=== PATIENT | male | born 1970 | race Caucasian/White ===

== ENCOUNTER 2018-07-22 11:13 | Inpatient (IN) | payer SELFPAY ==
[~2018-07-22] VITALS: Ht 177.8 cm; Wt 72.7 kg
--- NOTE | ~2018-07-22 | MORECARE ---
CASE MANAGEMENT DISCHARGE SUMMARY PATIENT: DEDRICK DOMINGUEZ UNIT: [id number] ADM DATE: 07/22/18 AGE: 48 : [birth year] SEX: M ROOM/BED: D.2227 AUTHOR: DARIO,DOC PHYSICIAN: REFERRING PHYSICIAN: YAKELIN DONALD MD DATE OF SERVICE: 07/26/18 Discharge Plan Patient Name: DEDRICK DOMINGUEZ Facility: [facility]:[place] : 1970 Planned Disposition: Home Anticipated Discharge Date: Discharge Date: 07/24/2018 Expected LOS: 0 Initial Reviewer: [email or web address] Initial Review Date: 07/23/2018 Generated: 07/26/18 10:46 am Comments DCP- Discharge Planning Updated by [email or web address]: Makenna Salazar on 07/23/18 1:[address] Patient Name: DEDRICK DOMINGUEZ Admission Status: ER Accout number: [id number] Admission Date: 07-22-2018 : 1970 Admission Diagnosis: Attending: YAKELIN DONALD Current LOS: 1 Anticipated DC Date: Planned Disposition: Home Primary Insurance: UNINSURED DISCOUNT PLAN Discharge Planning Comments: CM met with patient to discuss discharge planning, he is alone in the room. States he lives with his 13 year old son. States his "sebastián" is watching him while he is here in the hospital. States he is independent with all ADL's and IADL's. States his friend, Eva, will take him home on discharge. Declines home health, states he does not have any discharge needs. No needs identified. CM will continue to follow and assist with discharge planning/needs. Respiratory Manager: Makenna Salazar DCPIA - Discharge Planning Initial Assessment Updated by [email or web address]: Makenna Salazar on 07/23/18 2:46 pm * Is the patient Alert and Oriented? Yes * How many steps to enter\\exit or inside your home? 0/0 * PCP None * Pharm[facility] [address] * Preadmission Environment Home with Family * ADLs Independent * Equipment None * List name and contact numbers for known caregivers / representatives who currently or will assist patient after discharge: Eva Harman - [place] - [phone] * Verbal permission to speak to the caregivers and representatives has been obtained from the patient. Yes * Community resources currently utilized None * Additional services required to return to the preadmission environment? No * Can the patient safely return to the preadmission environment? Yes * Has this patient been hospitalized within the prior 30 days at any hospital? No Last DP export: 07/23/18 2:00 Patient Name: DEDRICK DOMINGUEZ Page 17999 at 0947 All edits/amendments must be made on the electronic document DICTATION DATE: 07/26/18945 SHIPPING LEAD PERSON: JAMES 07/26/18945 RPT#: [id number] DC DATE:07/24/18 STATUS: DIS IN [facility] [address] [place] [address] END OF REPORT
--- NOTE | ~2018-07-22 | OP ---
PATIENT NAME: DEDRICK DOMINGUEZ MEDICAL RECORD: [id number] :[birth year] LOCATION:D.MS Sarah2227 ADMISSION DATE:07/22/18 SURGEON: SAMUEL DONALD MD DATE OF OPERATION: 07/23/2018 PREOPERATIVE DIAGNOSIS: Acute cholecystitis. POSTOPERATIVE DIAGNOSIS: Acute cholecystitis with hepatomegaly. PROCEDURES: 1. Laparoscopic cholecystectomy. 2. Intraoperative cholangiography without immediate surgeon interpretation. 3. A 14-gauge core needle liver biopsy. SURGEON: Samuel Donald MD HUSBANDRY TECHNICIAN: None. BLOOD LOSS: Minimal. ANESTHESIA: General. COMPLICATIONS: None. The risks, possible complications, and alternatives to the procedure were explained to the patient. He elects to proceed. The discussion specifically included, but was not limited to, bleeding requiring emergency reoperation, infection, great vessel injury, bile duct injury. The indication for the liver biopsy was hepatomegaly. OPERATIVE COURSE: The patient was conveyed to the operating room electively on 07/23/2018. General anesthesia was induced by the anesthesia staff. The abdomen was sterilely prepped and draped. Due to the size of the gallstone, it was going to be necessary to make a larger fascial incision in order to retrieve the gallstone. A transverse incision was accomplished above the umbilicus. Sharp dissection was carried down to the level of the anterior fascia. Stay sutures of #0 Vicryl were placed on either side of the anterior fascia. The fascia was incised in the midline and I entered the peritoneal cavity through the linea alba. A 12-mm trocar was placed. CO2 insufflation was begun. Once a sufficient pneumoperitoneum had been achieved, three 5-mm trocars were inserted. One was inserted in the left upper quadrant, one was inserted in the epigastrium, and one was inserted far laterally in the right upper quadrant. Under laparoscopic guidance, I percutaneously accessed the right upper quadrant utilizing a 14-gauge core needle liver biopsy device. Cores were obtained over the convexity of the liver. The biopsy sites were made hemostatic with electrocautery. I then advanced a cholangiogram trocar. I punctured the fundus of the gallbladder. I aspirated bile. I then injected dye. Real time cholangiographic images were obtained and these static images were sent to the radiologist for interpretation. OPERATIVE REPORT [id number] DEDRICK DOMINGUEZ I aspirated bile and withdrew the cholangiogram trocar. The gallbladder was grasped and retracted cephalad. The infundibulum was grasped and retracted laterally. The gallbladder was edematous, indicative of acute cholecystitis. Blunt dissection was begun in the triangle of Calot. One cystic artery and one cystic duct were identified. These were clipped multiply and divided between clips. The gallbladder was then excised from its bed in the liver. It was placed within a bag retrieval device and was withdrawn through the supraumbilical fascial defect. The 12-mm trocar was replaced and the abdomen was reinsufflated. I irrigated and aspirated in the right upper quadrant. There was no bleeding even at low pressure of 8. All the trocars were removed and the abdomen was desufflated. The fascia above the umbilicus was closed with a running #0 Vicryl suture. The skin at all the operative sites were closed with interrupted intracuticular 3-0 Vicryls. Benzoin and Steri-Strips were applied. The patient was then extubated and conveyed to postanesthesia care unit, where he was in stable condition. TRANSINT:[id number] Voice Confirmation ID: [id number] DOCUMENT ID: [id number] SAMUEL DONALD MD at 1853 CC: [id number] DICTATION DATE: 07/24/181709 POULTRY OFFAL ICER: 07/24/18 175 DIS IN 07/24/18 [facility] [address] [place] [address]
--- NOTE | ~2018-07-22 | MORECARE ---
CASE MANAGEMENT DISCHARGE SUMMARY PATIENT: DEDRICK DOMINGUEZ UNIT: [id number] ADM DATE: 07/22/18 AGE: 48 : 66 SEX: M ROOM/BED: D.2227 AUTHOR: DARIO,DOC PHYSICIAN: REFERRING PHYSICIAN: YAKELIN DONALD MD DATE OF SERVICE: 07/23/18 Discharge Plan Patient Name: DEDRICK DOMINGUEZ Facility: [facility]:[place] : 1970 Planned Disposition: Home Anticipated Discharge Date: Discharge Date: Expected LOS: Initial Reviewer: [email or web address] Initial Review Date: 07/23/2018 Generated: 07/23/18 3:59 pm Comments DCP- Discharge Planning Updated by [email or web address]: Makenna Salazar on 07/23/18 1:[address] Patient Name: DEDRICK DOMINGUEZ Admission Status: ER Accout number: [id number] Admission Date: 07-22-2018 : 1970 Admission Diagnosis: Attending: YAKELIN DONALD Current LOS: 1 Anticipated DC Date: Planned Disposition: Home Primary Insurance: UNINSURED DISCOUNT PLAN Discharge Planning Comments: CM met with patient to discuss discharge planning, he is alone in the room. States he lives with his 13 year old son. States his "sebastián" is watching him while he is here in the hospital. States he is independent with all ADL's and IADL's. States his friend, Eva, will take him home on discharge. Declines home health, states he does not have any discharge needs. No needs identified. CM will continue to follow and assist with discharge planning/needs. Side Stitching Machine Operator: Makenna Salazar DCPIA - Discharge Planning Initial Assessment Updated by [email or web address]: Makenna Salazar on 07/23/18 2:46 pm * Is the patient Alert and Oriented? Yes * How many steps to enter\\exit or inside your home? 0/0 * PCP None * Pharmacy [facility] [address] * Preadmission Environment Home with Family * ADLs Independent * Equipment None * List name and contact numbers for known caregivers / representatives who currently or will assist patient after discharge: Eva Harman - [place] - [phone] * Verbal permission to speak to the caregivers and representatives has been obtained from the patient. Yes * Community resources currently utilized None * Additional services required to return to the preadmission environment? No * Can the patient safely return to the preadmission environment? Yes * Has this patient been hospitalized within the prior 30 days at any hospital? No Last DP export: 07/23/18 1:48 Patient Name: DEDRICK DOMINGUEZ Page [id number] at 1500 All edits/amendments must be made on the electronic document DICTATION DATE: 07/23/181458 STRIPPER AND PRINTER: JAMES 07/23/181458 RPT#: [id number] DC DATE: STATUS: ADM IN [facility] [address] [place] [address] END OF REPORT
--- NOTE | ~2018-07-22 | MORECARE ---
CASE MANAGEMENT DISCHARGE SUMMARY PATIENT: DEDRICK DOMINGUEZ UNIT: [id number] ADM DATE: 07/22/18 AGE: 48 : 66 SEX: M ROOM/BED: D.2227 AUTHOR: THOMAS BISHOP PHYSICIAN: REFERRING PHYSICIAN: YAKELIN DONALD MD DATE OF SERVICE: 07/23/18 Discharge Plan Patient Name: DEDRICK DOMINGUEZ [facility] [facility] 1970 Planned Disposition: Home Anticipated Discharge Date: Discharge Date: Expected LOS: Initial Reviewer: [email or web address] Initial Review Date: 07/23/2018 Generated: 07/23/18 3:48 pm DCPIA - Discharge Planning Initial Assessment Updated by [email or web address]: Makenna Salazar on 07/23/18 2:46 pm * Is the patient Alert and Oriented? Yes * How many steps to enter\exit or inside your home? 0/0 * PCP None * Pharmacy [facility] [address] * Preadmission Environment Home with Family * ADLs Independent * Equipment None * List name and contact numbers for known caregivers / representatives who currently or will assist patient after discharge: Eva Harman [facility] [place] - [phone] * Verbal permission to speak to the caregivers and representatives has been obtained from the patient. Yes * Community resources currently utilized None * Additional services required to return to the preadmission environment? No * Can the patient safely return to the preadmission environment? Yes * Has this patient been hospitalized within the prior 30 days at any hospital? No Patient Name: DEDRICK DOMINGUEZ Page 11861 at 1448 All edits/amendments must be made on the electronic document DICTATION DATE: 07/23/181446 TRANSMISSION SYSTEMS OPERATOR: JAMES 07/23/18 1447 RPT#: [id number] DC DATE: STATUS: ADM IN [facility] [address] [place] [address] END OF REPORT
[2018-07-22 11:47] LABS: APPEARANCE CLEAR (CLEAR); BILIRUBIN NEGATIVE (NEGATIVE); COLOR YELLOW (YELLOW); GLUCOSE NEGATIVE (NEGATIVE); KETONE NEGATIVE (NEGATIVE); NITRITE NEGATIVE (NEGATIVE); PROTEIN NEGATIVE (NEGATIVE); UROBILINOGEN NORMAL (NORMAL)
[2018-07-22 11:48] LABS: BASOPHILS 0.1 % (0-2); EOSINOPHILS 0.3 % (0-7); HEMATOCRIT 43.2 % (42.0-54.0); HEMOGLOBIN 14.9 g/dL (13.5-17.5); IMMATURE GRANULOCYTES 0.1 % (0-5); LYMPHOCYTES 12.7 % (15-50); MCHC 34.5 g/dL (31.0-37.0); MCV 92.7 fL (80.0-100.0); MEAN PLATELET VOLUME 9.1 fL (7.4-10.4); MONOCYTES 8.7 % (2-11); NEUTROPHILS 78.1 % (40-80); PLATELET COUNT 204 10x3/uL (130-400); RBC 4.66 10x6/uL (4.20-6.10); RDW 12.1 % (11.5-14.5)
[2018-07-22 12:05] LABS: ALBUMIN 3.8 g/dL (3.4-5.0); ALKALINE PHOSPHATASE 57 U/L (46-116); ALT (SGPT) 75 U/L (10-68); BILIRUBIN - TOTAL 0.52 mg/dL (0.2-1.3); CALC OSMOLALITY 277 mosm/kg (275-300); CALCIUM 8.9 mg/dL (8.5-10.1); CARBON DIOXIDE 26.7 mmol/L (21.0-32.0); CHLORIDE - SERUM 102 mmol/L (98-107); GLUCOSE 124 mg/dL (74-106); LIPASE 202 U/L (73-393); POTASSIUM - SERUM 3.8 mmol/L (3.5-5.1); PROTEIN - SERUM 7.8 g/dL (6.4-8.2); SODIUM 139 mmol/L (136-145); UREA NITROGEN 11 mg/dL (7-18); eGFR NON AFRICAN AMERICAN 84 mL/min (90-120)
[2018-07-22 16:59] VITALS: BP 125/75; BMI 23.0
[2018-07-22 19:50] VITALS: Ht 177.8 cm; Wt 72.7 kg
[2018-07-22 21:14] VITALS: BP 127/74
[2018-07-23] VITALS (8 sets, daily range): BP systolic 100–143; BP diastolic 48–82
[2018-07-23 05:02] LABS: BASOPHILS 0.3 % (0-2); EOSINOPHILS 0.8 % (0-7); HEMATOCRIT 40.5 % (42.0-54.0); HEMOGLOBIN 13.8 g/dL (13.5-17.5); IMMATURE GRANULOCYTES 0.3 % (0-5); LYMPHOCYTES 21.8 % (15-50); MCH 31.5 pg (26.0-34.0); MCHC 34.1 g/dL (31.0-37.0); MCV 92.5 fL (80.0-100.0); MEAN PLATELET VOLUME 9.4 fL (7.4-10.4); MONOCYTES 12.9 % (2-11); NEUTROPHILS 63.9 % (40-80); PLATELET COUNT 186 10x3/uL (130-400); RBC 4.38 10x6/uL (4.20-6.10); RDW 11.9 % (11.5-14.5); WBC 7.9 10x3/uL (4.8-10.8)
[2018-07-23 05:56] LABS: ALKALINE PHOSPHATASE 46 U/L (46-116); ALT (SGPT) 63 U/L (10-68); BILIRUBIN - TOTAL 0.54 mg/dL (0.2-1.3); CALC OSMOLALITY 276 mosm/kg (275-300); CALCIUM 8.6 mg/dL (8.5-10.1); CARBON DIOXIDE 27.4 mmol/L (21.0-32.0); CHLORIDE - SERUM 104 mmol/L (98-107); CREATININE - SERUM 0.9 mg/dL (0.6-1.3); GLUCOSE 99 mg/dL (74-106); PROTEIN - SERUM 6.5 g/dL (6.4-8.2); SODIUM 139 mmol/L (136-145); UREA NITROGEN 9 mg/dL (7-18); eGFR NON AFRICAN AMERICAN > 90 mL/min (90-120)
[2018-07-24] VITALS (11 sets, daily range): BP systolic 115–148; BP diastolic 53–79
[2018-07-24 05:39] LABS: BASOPHILS 0 % (0-2); EOSINOPHILS 0 % (0-7); HEMATOCRIT 43.4 % (42.0-54.0); IMMATURE GRANULOCYTES 0.2 % (0-5); LYMPHOCYTES 6.8 % (15-50); MCHC 34.6 g/dL (31.0-37.0); MCV 92.5 fL (80.0-100.0); MEAN PLATELET VOLUME 9.5 fL (7.4-10.4); MONOCYTES 1.5 % (2-11); NEUTROPHILS 91.5 % (40-80); PLATELET COUNT 180 10x3/uL (130-400); RBC 4.69 10x6/uL (4.20-6.10)
[2018-07-24 06:10] LABS: ALBUMIN 3.2 g/dL (3.4-5.0); ALKALINE PHOSPHATASE 45 U/L (46-116); ALT (SGPT) 72 U/L (10-68); BILIRUBIN - TOTAL 0.56 mg/dL (0.2-1.3); CALC OSMOLALITY 278 mosm/kg (275-300); CALCIUM 8.7 mg/dL (8.5-10.1); CARBON DIOXIDE 27.1 mmol/L (21.0-32.0); CHLORIDE - SERUM 103 mmol/L (98-107); CREATININE - SERUM 0.9 mg/dL (0.6-1.3); GLUCOSE 126 mg/dL (74-106); PHOSPHOROUS 2.9 mg/dL (2.5-4.9); PROTEIN - SERUM 7.3 g/dL (6.4-8.2); SODIUM 140 mmol/L (136-145); TROPONIN-I < 0.017 ng/mL (0.000-0.060); UREA NITROGEN 7 mg/dL (7-18); eGFR NON AFRICAN AMERICAN > 90 mL/min (90-120)
[2018-07-26 08:11] LABS: HEPATITIS C ANTIBODY >11.0 S/CO RAT (0.0-0.9)
== END 2018-07-24 18:04 | disposition home or self-care (01) | DRG 419 ==
LOC: D.ER 11:13 → OBSVTIME 15:31 → D.MS 15:31
PROVIDERS: Family Medicine; Surgery
PROC: BF121ZZ Fluoroscopy of Gallbladder using Low Osmolar Contrast (ICD-10-PCS; 2018-07-23)
PROC: 0FT44ZZ Resection of Gallbladder, Percutaneous Endoscopic Approach (ICD-10-PCS; principal; 2018-07-23 14:30)
PROC: 0FB04ZX Excision of Liver, Percutaneous Endoscopic Approach, Diagnostic (ICD-10-PCS; 2018-07-23 14:30)
DX: K80.00 Calculus of gallbladder with acute cholecystitis without obstruction (principal); R16.0 Hepatomegaly, not elsewhere classified